=== PATIENT | female | born 1985 | race Caucasian/White ===

== ENCOUNTER 2017-03-02 19:31 | Emergency (ER) | payer OTHER ==
[~2017-03-02] VITALS: Ht 165.1 cm; Wt 80.5 kg
[~2017-03-02 19:31] MED LIST: ATEN100T4 PO; GLU500 PO; IRON1TAB90 PO; PREN1TAB47 PO
[2017-03-02 19:47] VITALS: BP 128/80; PULSE 89; RESP 16; O2SAT 99
--- NOTE | 2017-03-02 20:02 | ED.REPORT ---
HPI-Syncope Date of Service Mar 02, 2017 ED Provider: Dhiraj Resendiz MD The pt is a 31 year old female with a hx of HTN, PCOS, gestational diabetes, and on metformin presenting to the ED via EMS complaining of a syncopal episode. This occurred earlier today after she experienced left-side pain in her groin and LLQ abdominal pain. She also noticed a "lump" on her left groin, though she has never had one previously. She claims that she sat down after feeling the abdominal/groin pain, felt lightheaded and nauseous and then proceeded to pass out. Denied symptoms include fever, chills, SOB, diaphoresis, diarrhea, vomiting, hematochezia, hematemesis, melena, or vaginal bleeding. The pt has recently been attempting to lose weight and so has been on a low- carbohydrate diet. She has previously experienced syncopal-like reactions when she is around needles. Nursing Notes Stated Complaint: SYNCOPAL EPISODE Chief Complaint: General Complaint Nursing Notes Reviewed: Yes Allergies: Coded Allergies: No Known Allergies (Unverified Allergy, Unknown, 08/17/16) Scheduled Atenolol-Expunged Drug, Do Not Renew! (Atenolol-Expunged Drug, Do Not Renew!) 100 Mg Tablet 100 MG PO BID Iron,Carbonyl/Ascorbic Acid (Iron 100-Vitamin C Tablet) 1 Each Tablet 1 EACH PO DAILY Metformin-Expunged Drug, Do Not Renew! (Metformin-Expunged Drug, Do Not Renew!) 500 Mg Tablet 500 MG PO TID Vit/Fe Fumarate/Fa-Expunged Drug, Do (-Expunged Drug, Do Not Renew!) 1 Tab Tablet 1 TAB PO DAILY General Time Seen by Provider: 20:10 Chief Complaint Other (syncope) Syncope Description: Single episode Hx Obtained From: Patient, EMS Arrived By: Ambulance Onset Occurred: 5 - 8 hours ago Recent Healthcare: No recent doctor visit, No recent hospitalization Similar Sx Previous: No Past Medical History Past Medical History HTN gestational diabetes PCOS Past Surgical History None reported Smoking History Unknown if Ever Smoker Social History Other Social History: Good social support Ambulatory Status Independent Review of Systems +groin pain +"lump" on left groin denies melena Constitutional: Denies: Chills, Fever Respiratory: Denies: Non-productive cough, Shortness of breath GI: Reports: Abdominal pain (LLQ pain), Nausea, Denies: Bloody/tarry stool, Diarrhea, Hematemesis, Hematochezia, Vomiting Skin: Denies Diaphoresis Neurologic: Reports: Lightheaded, Syncope Complete sys rev & neg: except as marked. Additional Review of Systems Female: Denies: Vaginal bleeding - abnl Physical Exam Physical Exam Notes: no orthostatic changes on VS Initial Vital Signs Vital Signs (First) Date Time Temp Pulse Resp B/P Pulse Ox O2 Delivery O2 Flow Rate FiO2 03/02/17 19:47 36.8 89 16 128/80 99 Room Air Initial VS: Reviewed Head / Eyes: Atraumatic, Normocephalic Neck: Supple, Full range of motion Back: No CVA tenderness Lymphatic: No lymphadenopathy Skin: Warm, Dry Psychiatric: Mood/affect normal General/Constitutional: Awake, Alert Respiratory / Chest: Atraumatic, Breath sounds NL, Breath sounds = bilat, No respiratory distress Cardiovascular: Heart rate NL, Regular rhythm, Heart sounds NL, No gallop, No murmurs, No rubs Lower Extremity / Pelvis / MS: Atraumatic, Full range of motion Neurologic: Oriented X3, Speech NL, No motor deficits, No sensory deficits Abdomen: Atraumatic, Soft, Non-tender, BS normoactive Female Genitourinary: [employer] Consult[employer] present, External genitalia NL Left inguinal adenopathy and tenderness Tiny lesion on the left groin lateral to labia consistent with ingrown hair, does not appear to be ripe at this point No surrounding errythema or induration Pubic hair shaved Interpretation & Diagnostics Lab Results Interpretation Result Diagram: 03/02/17200403/02/172004 Test 03/02/17 20:05 03/02/17 22:56 White Blood Count 10.3th/mm3 (3.8-10.1) Red Blood Count 4.91mil/mm3 (3.90-5.20) Hemoglobin 14.1g/dL (12.0-15.6) Hematocrit 40.9% (35.0-46.0) Mean Corpuscular Volume 83.3fL (81-100) Mean Corpuscular Hemoglobin 28.7pg (27.0-35.0) Mean Corpuscular Hemoglobin Concent 34.5% (32.0-37.0) Red Cell Distribution Width 13.1% (12.3-15.4) Platelet Count 250bil/L (150-400) Neutrophils (%) (Auto) 70.0% (40-74) Lymphocytes (%) (Auto) 22.3% (14-46) Monocytes (%) (Auto) 5.0% (4-12) Eosinophils (%) (Auto) 2.2% (0-5) Basophils (%) (Auto) 0.4% (0-3) Sodium Level 140mEq/L (134-144) Potassium Level 4.3mEq/L (3.5-5.2) Chloride Level 103mEq/L (97-108) Carbon Dioxide Level 23mmol/L (18-29) Blood Urea Nitrogen 16mg/dL (6-20) Creatinine 0.61mg/dL (0.57-1.00) Estimat Glomerular Filtration Rate 163mL/min (>59) Glucose Level 227mg/dL (60-99) Calcium Level 9.3mg/dL (8.5-10.1) Total Bilirubin 0.3mg/dL (0.0-1.2) Aspartate Amino Transf (AST/SGOT) 17U/L (0-50) Alanine Aminotransferase (ALT/SGPT) 22U/L (0-32) Alkaline Phosphatase 49U/L (25-150) Total Protein 7.6g/dL (6.4-8.4) Albumin 4.5g/dL (3.4-5.0) Hold Dorsey Top Tube Received (Received) Hold Urine Received (Received) Lab Results Interpretation: Urine negative ECG Interpretation Time: 20:19 Normal ECG Interpretation: Normal rate (86), Normal sinus rhythm Re-Eval/Medical Decision Source of Hx: Old records Re-Evaluation/Progress #1: Time of Eval: 21:38 Re-Evaluation/Progress Note: Patient rechecked. Pelvic exam performed. Re-Evaluation/Progress #2: Time of Eval: 21:42 Re-Evaluation/Progress Note: Patient rechecked. Face feels hot but the pt is not febrile. Temperature: 37.2. Re-Evaluation/Progress #3: Time of Eval: 23:21 Re-Evaluation/Progress Note: Patient rechecked. Discussed negative urine test results. She reports feeling better. Discussed plan to discharge. Patient understands and agrees with the plan. All questions addressed at this time. Counseled Regarding: Diagnosis, Lab results, Need for follow-up, When/why to return to ED Discharge & Departure Impression: Primary Impression: Syncope Syncope type: unspecified Qualified Code: R55 - Syncope and collapse Additional Impression: Inguinal lymphadenopathy Disposition: Home Discharge Condition All VS Reviewed: Yes Condition: Improved Patient Instructions: Near Syncope (ED) Additional Instructions: Emergency department course tonight included interview, examination labs and ECG. No serious cause for an episode of fainting was identified. We note swollen lymph nodes in the left groin, the only apparent reason for this is a small pimple type lesion which appears to be an ingrown hair. This will respond to warm packs, use ibuprofen 600 mg every 6-8 hours as needed for pain. We are starting antibiotics (Bactrim DS) for this infection also- 1 2 times a day for 10 days. Follow-up with primary care Y[facility]. Return to emergency department for fevers, increasing abdominal pain frequent vomiting or other new or worrisome symptoms or if having recurrent episodes of fainting. Referrals: Elsie Herrera Attestation Portions of this note were transcribed by Ana Coronel and Cristopher Duran. I, Dr. Resendiz personally performed the history, physical exam and medical decision- making; I reviewed and confirmed the accuracy of the information in the transcribed note. Signed by: Sangeeta Childress, 03/02/2017 copies to: Elsie Herrera Donald L MD Mar 02, 2017 20:02 Mar 02, 2017 20:28 ANA CORONEL Mar 02, 2017 23:12
[2017-03-02 20:17] LABS: BASOPHILS % (AUTO) 0.4 % (0-3); EOSINOPHILS % (AUTO) 2.2 % (0-5); Mean Corpuscular Hemoglobin 28.7 pg (27.0-35.0); Mean Corpuscular Volume 83.3 fL (81-100); Platelet Count 250 bil/L (150-400)
[2017-03-02 22:42] VITALS: BP 118/75; PULSE 92
[2017-03-02 22:43] VITALS: BP 111/68; PULSE 89; RESP 19; O2SAT 95
[2017-03-02 22:45] VITALS: BP 132/78; PULSE 105
[2017-03-02] MEDS ORDERED: _Trimethoprim-Sulfa 160/800 mg Tablet PO SCH (23:30)
[2017-03-03 00:12] VITALS: BP 128/70; PULSE 92; RESP 19; O2SAT 98
== END 2017-03-02 23:50 | disposition home or self-care (01) ==
LOC: EDUNIT# 19:31 → SED 19:31 → EDBD 19:31 → SED 23:50
DX: R55 Syncope and collapse (principal); R59.1 Generalized enlarged lymph nodes; R10.32 Left lower quadrant pain; R19.09 Other intra-abdominal and pelvic swelling, mass and lump; R42 Dizziness and giddiness; R11.0 Nausea; I10 Essential (primary) hypertension; Z79.84 Long term (current) use of oral hypoglycemic drugs